=== PATIENT | male | born 1955 | race Caucasian/White ===

== ENCOUNTER 2019-05-10 07:03 | Outpatient (CLI) | payer OTHER ==
[2019-05-10] VITALS (7 sets, daily range): BP systolic 132–147; BP diastolic 66–81
[~2019-05-10] VITALS: Ht 177.8 cm; Wt 134.1 kg
[2019-05-10] MEDS ORDERED: [UNRECOGNIZED DRUG - CODE] PO (08:06)
[2019-05-10] MEDS ORDERED: PRED20TA PO (08:07)
[2019-05-10] MEDS ORDERED: ACETAMINOPHEN 325 MG TAB PO ONE (08:15)
[2019-05-10] MEDS ORDERED: EMLA CREAM 5GM (LIDOCAINE/PRILOCAINE) TOP PRN (08:15)
[2019-05-10] MEDS ORDERED: diphenhydrAMINE 25 MG CAP PO ONE (08:15)
[2019-05-10] MEDS ORDERED: AMLO25TA PO (08:17)
[2019-05-10] MEDS ORDERED: TACR5CAP4 PO (08:17)
[2019-05-10] MEDS ORDERED: FLOM0.4C39 PO (08:17)
[2019-05-10] MEDS ORDERED: ROSU10TA6 PO (08:17)
[2019-05-10] MEDS ORDERED: IMMUN40IV IV (08:17)
[2019-05-10] MEDS ORDERED: PARO30TA3 PO (08:17)
[2019-05-10] MEDS ORDERED: AMLO10TA5 PO (08:17)
[2019-05-10] MEDS ORDERED: BENI1TAB3 PO (08:17)
[2019-05-10] MEDS ORDERED: HYDR12.55 PO (08:17)
[2019-05-10] MEDS ORDERED: IMMUNE GLOBULIN 10% 40 GM in APPROPRIATE DILUENT 1 EA IV ONE (08:30)
[2019-05-10] MEDS ORDERED: NS 1,000 ML IV PRN (08:30)
[2019-05-10] MEDS ORDERED: IMMUNE GLOBULIN 10% 10 GM in APPROPRIATE DILUENT 1 EA IV ONE (08:30)
[2019-05-10] MEDS ORDERED: diphenhydrAMINE INJ 50MG/ML VIAL (J1200) IV PRN (08:30)
[2019-05-10] MEDS ORDERED: IMMUNE GLOBULIN IV ONE (09:00)
[2019-05-10] MEDS ORDERED: IMMUNE GLOBULIN 10% 80 GM in APPROPRIATE DILUENT 1 EA IV ONE (09:00)
[2019-05-10] MEDS ORDERED: DILUENT IV ONE (09:00)
== END 2019-05-10 13:45 | disposition home or self-care (01) ==
LOC: M INFU 07:03
PROVIDERS: ATTEND Psychiatry & Neurology Clinical Neurophysiology
DX: G70.00 Myasthenia gravis without (acute) exacerbation (principal)

== ENCOUNTER 2019-05-11 06:58 | Outpatient (CLI) | payer OTHER ==
[2019-05-11] VITALS (7 sets, daily range): BP systolic 132–145; BP diastolic 70–83
[~2019-05-11] VITALS: Ht 177.8 cm; Wt 134.1 kg
[~2019-05-11 06:58] MED LIST: AMLO10TA5 PO; AMLO25TA PO; BENI1TAB3 PO; FLOM0.4C39 PO; HYDR12.55 PO; IMMUN40IV IV; PARO30TA3 PO; PRED20TA PO; ROSU10TA6 PO; TACR5CAP4 PO; [UNRECOGNIZED DRUG - CODE] PO
[2019-05-11] MEDS ORDERED: IMMUNE GLOBULIN IV ONE ×2 (07:15→07:30)
[2019-05-11] MEDS ORDERED: IMMUNE GLOBULIN 10% 10 GM in APPROPRIATE DILUENT 1 EA IV ONE ×2 (07:15→07:30)
[2019-05-11] MEDS ORDERED: DILUENT IV ONE ×2 (07:15→07:30)
[2019-05-11] MEDS ORDERED: ACETAMINOPHEN TAB 650MG DOSE (2X325MG) PO ONE (07:15)
[2019-05-11] MEDS ORDERED: EPINEPHrine INJ 1 MG/ML 1ML AMP IM PRN (07:30)
[2019-05-11] MEDS ORDERED: diphenhydrAMINE 25 MG CAP PO ONE (07:30)
[2019-05-11] MEDS ORDERED: NS 1,000 ML IV PRN (07:30)
[2019-05-11] MEDS ORDERED: diphenhydrAMINE INJ 50MG/ML VIAL (J1200) IV PRN (07:30)
[2019-05-11] MEDS ORDERED: EMLA CREAM 5GM (LIDOCAINE/PRILOCAINE) TOP PRN (07:30)
== END 2019-05-11 12:30 | disposition home or self-care (01) ==
LOC: M INFU 06:58 → EDUNIT# 07:00 → M INFU 12:30
PROVIDERS: ATTEND Psychiatry & Neurology Clinical Neurophysiology
DX: G70.00 Myasthenia gravis without (acute) exacerbation (principal)